=== PATIENT | female | born 1985 | race Caucasian/White ===

== ENCOUNTER 2017-03-23 22:53 | Emergency (ER) | payer MEDICAID ==
[~2017-03-23] VITALS: Ht 157.5 cm; Wt 58.7 kg
[~2017-03-23 22:53] MED LIST: ORTHTAB2 PO
[2017-03-23 23:14] VITALS: BP 136/93; PULSE 87; RESP 14; TEMP 99; O2SAT 98
[2017-03-23] MEDS ORDERED: NORG1TAB3 PO (23:59)
[2017-03-24 01:15] VITALS: BP 111/72; PULSE 78; RESP 16; O2SAT 99
[2017-03-24] MEDS ORDERED: SODIUM CHLORIDE 0.9% FLUSH 10 ML FLUSH IVF PRN (03:30)
[2017-03-24 03:55] VITALS: BP_SYST 103; BP_SYST 110; BP_SYST 95; BP_DIAS 63; BP_DIAS 64; BP_DIAS 80; RESP 16
[2017-03-24 04:12] LABS: AUTOMATED NEUTROPHIL # 2.4 TH/MM3 (1.8-7.7); BASOPHIL % 0.7 % (0.0-2.0); EOSINOPHIL # 0.1 TH/MM3 (0-0.4); EOSINOPHIL % 1.9 % (0.0-4.0); HEMATOCRIT 38.9 % (35.0-46.0); HEMO FLAGS DIFF FINAL; LYMPH % 50.7 % (9.0-44.0); LYMPHOCYTE # 3.1 TH/MM3 (1.0-4.8); MEAN CELL VOLUME 92.1 FL (80.0-100.0); MEAN CORPUSCULAR HEMOGLOBIN 31.7 PG (27.0-34.0); MEAN CORPUSCULAR HGB CONC 34.4 % (32.0-36.0); MONO % 7.2 % (0.0-8.0); NEUT % 39.5 % (16.0-70.0); PLATELET COUNT 186 TH/MM3 (150-450); RED BLOOD COUNT 4.23 MIL/MM3 (4.00-5.30); RED CELL DISTRIBUTION WIDTH 13.6 % (11.6-17.2)
[2017-03-24 04:12] LABS: BLOOD, URINE NEG (NEG); GLUCOSE,URINE NEG (NEG); KETONE, URINE NEG (NEG); NITRITE,URINE NEG (NEG)
[2017-03-24 04:16] LABS: COMMENT (UR) CULT NOT INDICATED; CULTURE IF INDICATED CULT NOT INDICATED; RBC, URINE 0-2 /hpf (0-3); SQUAMOUS EPITHELIAL CELL URINE 0-5 /hpf (0-5); URINE COLOR STRAW (YELLW/STRAW); WBC, URINE 0-2 /hpf (0-5)
[2017-03-24 04:17] LABS: POTASSIUM 3.7 MEQ/L (3.5-5.1)
[2017-03-24 04:21] LABS: BICARBONATE 29.6 MEQ/L (21.0-32.0); MAGNESIUM 2.2 MG/DL (1.5-2.5)
[2017-03-24 04:23] LABS: AMPHETAMINE, URINE NEG (NEG); BARBITURATES, URINE NEG (NEG); COCAINE, URINE NEG (NEG)
--- NOTE | 2017-03-24 04:32 | PD ---
HPI Chief Complaint: Dizziness Time Seen by Provider: 03:28 Travel History International Travel<30 days: No Contact w/Intl Traveler<30days: No Traveled to known affect area: No History of Present Illness HPI 31-year-old female presents to the emergency department by private transportation from work for complaint of dizziness. According to the patient she has episodes of dizziness associated with panic attacks. Patient reports that typically when she has one of her episodes of some on a hold her really tightly she feels better and all of her symptoms resolved. Patient states this evening while at work she developed a panic attack and because of that she had a coworker hug her and do not feel better since decided come to the emergency room to be evaluated. Patient has had these symptoms on and off for approximately 1 year or longer. Patient denies any new onset ataxia altered mentation visual disturbance speech disturbance upper or lower extremity numbness tingling or weakness chest pain pleuritic chest pain palpitations shortness of breath nausea vomiting abdominal pain sweats near syncope or syncope. Patient denies fever chills recent respiratory illness dysuria frequency urgency flank pain diarrhea or vaginal discharge. Patient's last period was approximately a week ago and patient denies . Patient states she takes no medications on a routine patient's. Patient does admit to alcohol ingestion; one beer. PFSH Past Medical History Narrative Medical Anxiety depression GERD insomnia headaches; alcohol use tobacco use; nursing notes reviewed Hx Anticoagulant Therapy: No Anxiety: Yes Depression: Yes Cardiovascular Problems: No Chemotherapy: No Cerebrovascular Accident: No Diabetes: No Diminished Hearing: No GERD: Yes Headaches: Yes Insomnia: Yes Respiratory: No Immunizations Current: No ?: Unknown LMP: 02/26/17 Menopausal: No : 1 Para: 1 Past Surgical History Section: Yes (X 1) Gynecologic Surgery: Yes (BIOPSY-PRECANCEROUS CERVICAL ) Hysterectomy: No Social History Alcohol Use: Yes (PT STATES " I DRINK 2 BEERS DAILY X 5 DAYS WEEK) Tobacco Use: Yes (1/2 PPD DAILY) Substance Use: Yes (PT ADMITS TO DRINKING 2 BEERS DAILY X 5DAYS/WK ) Allergies-Medications (Allergen,Severity, Reaction): Coded Allergies: No Known Allergies (Unverified , 08/01/15) Reported Meds & Prescriptions Reported Meds & Active Scripts Active Reported Norgestimate-Ethinyl Estradiol 0.18/0.215/0.25 Mg-25 Mcg Tab 1 Tab PO DAILY Review of Systems Except as stated in HPI: all other systems reviewed are Neg Physical Exam Narrative GENERAL: Well-developed well-nourished female in no acute distress no respiratory distress SKIN: Warm and dry. HEAD: Atraumatic. Normocephalic. EYES: Pupils equal and round. No scleral icterus. No injection or drainage. ENT: No nasal bleeding or discharge. Mucous membranes pink and moist. NECK: Trachea midline. No JVD. CARDIOVASCULAR: Regular rate and rhythm. RESPIRATORY: No accessory muscle use. Clear to auscultation. Breath sounds equal bilaterally. GASTROINTESTINAL: Abdomen soft, non-tender, nondistended. Hepatic and splenic margins not palpable. MUSCULOSKELETAL: Extremities without clubbing, cyanosis, or edema. No obvious deformities. NEUROLOGICAL: Awake and alert. No obvious cranial nerve deficits. Motor grossly within normal limits. Five out of 5 muscle strength in the arms and legs. Normal speech. PSYCHIATRIC: Appropriate mood and affect; insight and judgment normal. Data Data Last Documented VS Vital Signs Date Time Temp Pulse Resp B/P Pulse Ox O2 Delivery O2 Flow Rate FiO2 03/24/17 06:01 85 16 117/74 100 03/24/17 01:15 Room Air 03/23/17 23:14 99.0 Orders Ed Urine Pregnancytest Poc (03/24/17 00:25) Basic Metabolic Panel (Bmp) (03/24/17 03:29) Complete Blood Count With Diff (03/24/17 03:29) Magnesium (Mg) (03/24/17 03:29) Urinalysis - C+S If Indicated (03/24/17 03:29) Ecg Monitoring (03/24/17 03:29) Iv Access Insert/Monitor (03/24/17 03:29) Oximetry (03/24/17 03:29) Sodium Chloride 0.9% Flush (Ns Flush) (03/24/17 03:30) Orthostatic Vital Signs (03/24/17 03:29) Alcohol (Ethanol) (03/24/17 03:29) Drug Screen, Random Urine (03/24/17 03:29) Thiamine Inj (Thiamine Inj) (03/24/17 04:45) Sodium Chlorid 0.9% 500 Ml Inj (Ns 500 M (03/24/17 04:45) Labs Laboratory Tests Test 03/24/17 03/24/17 03:50 04:00 Urine Color STRAW Urine Turbidity CLEAR Urine pH 6.0 Urine Specific [place] 1.010 Urine Protein NEG mg/dL Urine Glucose (UA) NEG mg/dL Urine Ketones NEG mg/dL Urine Occult Blood NEG Urine Nitrite NEG Urine Bilirubin NEG Urine Leukocyte Esterase NEG Urine RBC 0-2 /hpf Urine WBC 0-2 /hpf Urine Squamous Epithelial 0-5 /hpf Cells Urine Bacteria NONE /hpf Microscopic Urinalysis Comment CULT NOT INDICATED Urine Opiates Screen NEG Urine Barbiturates Screen NEG Urine Amphetamines Screen NEG Urine Benzodiazepines Screen NEG Urine Cocaine Screen NEG Urine Cannabinoids Screen POS White Blood Count 6.0 TH/MM3 Red Blood Count 4.23 MIL/MM3 Hemoglobin 13.4 GM/DL Hematocrit 38.9 % Mean Corpuscular Volume 92.1 FL Mean Corpuscular Hemoglobin 31.7 PG Mean Corpuscular Hemoglobin 34.4 % Concent Red Cell Distribution Width 13.6 % Platelet Count 186 TH/MM3 Mean Platelet Volume 7.9 FL Neutrophils (%) (Auto) 39.5 % Lymphocytes (%) (Auto) 50.7 % Monocytes (%) (Auto) 7.2 % Eosinophils (%) (Auto) 1.9 % Basophils (%) (Auto) 0.7 % Neutrophils # (Auto) 2.4 TH/MM3 Lymphocytes # (Auto) 3.1 TH/MM3 Monocytes # (Auto) 0.4 TH/MM3 Eosinophils # (Auto) 0.1 TH/MM3 Basophils # (Auto) 0.0 TH/MM3 CBC Comment DIFF FINAL Differential Comment Sodium Level 145 MEQ/L Potassium Level 3.7 MEQ/L Chloride Level 108 MEQ/L Carbon Dioxide Level 29.6 MEQ/L Anion Gap 7 MEQ/L Blood Urea Nitrogen 8 MG/DL Creatinine 0.60 MG/DL Estimat Glomerular Filtration 117 ML/MIN Rate Random Glucose 84 MG/DL Calcium Level 8.0 MG/DL Magnesium Level 2.2 MG/DL Ethyl Alcohol Level 292 MG/DL [facility] Medical Decision Making Medical Screen Exam Complete: Yes Emergency Medical Condition: Yes Medical Record Reviewed: Yes Interpretation(s) CBC & BMP Diagram 03/24/17 04:00 Serum alcohol: 1092 Urine drug screen positive for cannabinoids Urinalysis normal [id number]-cirp hCG: Negative Differential Diagnosis Dizziness, alcohol ingestion, substance ingestion, arrhythmia, electrolyte disturbance, dehydration; low suspicion for but also to consider TIA, PE Narrative Course Patient evaluated after being awakened from sleep where she had been resting easily awaking and cooperative able to give history without any focality on exam ; patient aware 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 Patient is agreeable to testing Patient identified to have alcohol level CCXCII patient states I only drank one beer patient states feels improved dizziness has resolved desirous of being discharged home patient are stable for outpatient management at this time prior to discharge patient did receive fluid bolus and thiamine replacement; Diagnosis Primary Impression: Alcohol ingestion Additional Impression: Dizziness Referrals: Primary Care Physician call for appointment [facility] for appointment Patient Instructions: General Instructions Additional Instructions: Increase fluid hydration Avoid excess alcohol use Follow-up with your primary care provider/[facility] Return to the emergency department as needed Disposition: 01 DISCHARGE HOME Condition: Stable Neris Sneed MD March 24, 2017 04:32
[2017-03-24] MEDS ORDERED: THIAMINE INJ 100 MG in SODIUM CHLORIDE 0.9% INJ 100 ML IV ONE (04:45)
[2017-03-24] MEDS ORDERED: SODIUM CHLORID 0.9% 500 ML INJ 500 ML IV ONE (04:45)
[2017-03-24 06:01] VITALS: BP 117/74
== END 2017-03-24 06:05 | disposition home or self-care (01) ==
LOC: PHED 22:53
DX: Z72.89 Other problems related to lifestyle (principal); R42 Dizziness and giddiness; F17.200 Nicotine dependence, unspecified, uncomplicated; Z79.899 Other long term (current) drug therapy; Z86.59 Personal history of other mental and behavioral disorders; Z87.19 Personal history of other diseases of the digestive system
CPT/HCPCS: 80048; 80307; 81001; 83735; 84703; 85025; 96365; 99284; J3411; J7040

== ENCOUNTER 2018-02-08 16:40 | Emergency (ER) | payer MEDICAID ==
[~2018-02-08] VITALS: Ht 157.5 cm; Wt 53.0 kg
[~2018-02-08 16:40] MED LIST changes: +NORG1TAB3 PO; -ORTHTAB2 PO
[2018-02-08 17:05] VITALS: BP 170/78; PULSE 60; RESP 16; TEMP 98.8; O2SAT 100
--- NOTE | 2018-02-08 18:44 | RADRPT ---
EXAM DATE/TIME: 02/08/2018 18:28 [place] COMPARISON: No previous studies available for comparison. INDICATIONS : Right hand laceration. Cut with glass. MEDICAL HISTORY : None. SURGICAL HISTORY : None. ENCOUNTER: Initial ACUITY: 1 day PAIN SCORE: 6/10 LOCATION: Right upper extremity FINDINGS: Two view examination of the right hand demonstrates no dislocation, or fracture. The joint spaces a re maintained. Bony mineralization is normal. There appears to be a soft tissue injury at the medial aspect of the hand at the level of the distal fifth metacarpal. The bony structures are intact. CONCLUSION: Soft tissue injury. Juventino Peterson MD on February 08, 2018 at 18:42 Board Certified Radiologist. This report was verified electronically.
--- NOTE | 2018-02-08 19:01 | PD ---
HPI Chief Complaint: Laceration/Skin Injury Time Seen by Provider: 18:05 Travel History International Travel<30 days: No Contact w/Intl Traveler<30days: No Traveled to known affect area: No History of Present Illness HPI 32-year-old female here with a laceration to her right hand caused by broken glass prior to arrival. Denies paresthesia or weakness of the extremity. She has mild pain at the site of the laceration. No aggravating or alleviating factors. Tetanus immunization is up-to-date. PFSH Past Medical History Hx Anticoagulant Therapy: No Anxiety: Yes Depression: Yes Cardiovascular Problems: No Chemotherapy: No Cerebrovascular Accident: No Diabetes: No Diminished Hearing: No GERD: Yes Headaches: Yes Insomnia: Yes Respiratory: No Immunizations Current: No ?: Not LMP: LAST WEEK Menopausal: No : 1 Para: 1 Past Surgical History Section: Yes (X 1) Gynecologic Surgery: Yes (BIOPSY-PRECANCEROUS CERVICAL ) Hysterectomy: No Social History Alcohol Use: Yes (DAILY) Tobacco Use: Yes ("TRYING TO QUIT") Substance Use: No Allergies-Medications (Allergen,Severity, Reaction): Coded Allergies: No Known Allergies (Unverified Adverse Reaction, Unknown, 02/08/18) Reported Meds & Prescriptions Reported Meds & Active Scripts Active Reported Norgestimate-Ethinyl Estradiol 0.18/0.215/0.25 Mg-25 Mcg Tab 1 Tab PO DAILY Review of Systems Except as stated in HPI: all other systems reviewed are Neg General / Constitutional: No: Fever Eyes: No: Visual changes HENT: No: Headaches Cardiovascular: No: Chest Pain or Discomfort Respiratory: No: Shortness of Breath Gastrointestinal: No: Abdominal Pain Genitourinary: No: Dysuria Physical Exam Narrative GENERAL: Alert well-appearing 32-year-old female SKIN: 1.5 centimeter laceration to the dorsal aspect of the right hand HEAD: Normocephalic. EYES: No injection or drainage. NECK: Supple MUSCULOSKELETAL: No cyanosis, or edema. Right hand: 1.5 centimeter linear laceration to the dorsal aspect of the hand over the distal portion of the fifth metacarpal. No tendon or vascular injury identified. Patient is able to flex and extend the fifth finger without difficulty. Normal sensation. Brisk cap refill. Bleeding well-controlled. Data Data Last Documented VS Vital Signs Date Time Temp Pulse Resp B/P (MAP) Pulse Ox O2 Delivery O2 Flow Rate FiO2 02/08/18 17:05 98.8 60 16 170/78 (108) 100 Orders Orders Hand, Limited (2vws) (02/08/18 ) Ed Discharge Order (02/08/18 19:02) MDM Medical Decision Making Medical Screen Exam Complete: Yes Emergency Medical Condition: Yes Differential Diagnosis Laceration, tendon injury, vascular injury, retained foreign body Narrative Course 32-year-old female here with a laceration to her right hand. No tendon or vascular injury identified or suspected. X-ray negative for foreign body. Laceration repair performed. Patient tolerated procedure well. Procedures Procedure Narrative LACERATION LOCATION: Right hand dorsal aspect LENGTH: 1 cm NUMBER OF STITCHES/LISA: 3 REPAIR: The area of the laceration was prepped with Betadine and sterilely draped. The laceration was infiltrated with 1% lidocaine. The wound was copiously irrigated and explored without evidence of foreign body, tendon injury or neurovascular injury. The wound was closed using 4-0 Ethilon. This was a single layer repair. A sterile dressing was applied. The patient was advised to keep the dressing clean and dry. Patient tolerated the procedure well. Diagnosis Primary Impression: Hand laceration Qualified Codes: S61.411A - Laceration without foreign body of right hand, initial encounter Referrals: Primary Care Physician Additional Instructions: Do not submerge the wound in water. Sutures need to be removed in 7-10 days. Cleansed the area daily with soap and water. Cover With a clean dry dressing. Disposition: 01 DISCHARGE HOME Condition: Stable Shamika Neri Feb 08, 2018 19:01
== END 2018-02-08 19:08 | disposition home or self-care (01) ==
LOC: PHEFT 16:40
DX: S61.411A Laceration without foreign body of right hand, initial encounter (principal); F32.9 Major depressive disorder, single episode, unspecified; F41.9 Anxiety disorder, unspecified; G47.00 Insomnia, unspecified; K21.9 Gastro-esophageal reflux disease without esophagitis; W25.XXXA Contact with sharp glass, initial encounter; Z72.0 Tobacco use
CPT/HCPCS: 12001; 73120